=== PATIENT | male | born 1980 | race African-American/Black ===

== ENCOUNTER 2020-03-18 09:44 | Observation (INO) ==
[2020-03-18] MEDS ORDERED: ACETAMINOPHEN 500 MG TABLET PO STA (11:55)
[2020-03-18 12:02] LABS: Basophils % 0.3 % (0.0-0.8); Hematocrit 51.1 VOL% (42.0-52.0); Hemoglobin 17.5 GM/DL (14.0-18.0); Immature Granulocytes % 1.3 %; Immature Granulocytes Absolute 0.09 #; Lymphocytes # 0.7 10*3/uL (1.4-4.0); Lymphocytes % 10.6 % (21.2-54.2); Mean Corpuscular HGB Conc 34.2 GM/DL (32-36); Mean Corpuscular Volume 93.4 FL (87-102); Mean Platelet Volume 9.6 FL (9.6-12.0); Monocytes % 4.5 % (1.7-12.7); Neutrophils % 83.3 % (38.7-73.9); Platelet Count 228 T/CUMM (130-400); Red Blood Count 5.47 MC/CUMM (3.8-5.5); Red Cell Distribution Width 12.4 % (9.3-17.3); White Blood Count 6.7 T/CUMM (4-12)
[2020-03-18] MEDS ORDERED: SODIUM CHLORIDE 0.9% 1,000 ML IV STA (12:23)
[2020-03-18] MEDS ORDERED: ALBUTEROL/IPRATROPIUM 3 ML NEB RESP TX STA (12:23)
[2020-03-18] MEDS ORDERED: AZITHROMYCIN INJ 500 MG in SODIUM CHLORIDE 0.9% 250 ML IV STA (12:33)
[2020-03-18] MEDS ORDERED: cefTRIAXone 1,000 MG in SODIUM CHLORIDE 0.9% 100 ML IV STA (12:33)
[2020-03-18 12:34] LABS: Alanine Aminotransferase 52 U/L (16-61); Alkaline Phosphatase 63 U/L (45-117); Aspartate Amino Transferase 40 U/L (0-37); Blood Urea Nitrogen 12 MG/DL (7-18); Calcium 8.7 MG/DL (8.5-10.1); Estimated Glom Filtration Rate 113 ML/MIN; Ferritin 211.7 ng/ml (26-388); Glucose 110 MG/DL (74-106); Total Protein 8.1 G/DL (6.4-8.3)
[2020-03-18] MEDS ORDERED: ENOXAPARIN 100 MG/ML SYRINGE SUBCUT STA (14:10)
[2020-03-18] MEDS ORDERED: GLUCAGON 1 MG VIAL IM PRN (14:27)
[2020-03-18] MEDS ORDERED: DEXTROSE 50% 25 GM/50 ML VIAL IV PRN (14:27)
[2020-03-19] MEDS: ENOXAPARIN 80 MG/0.8 ML SYRINGE SUBCUT SCH ×2 (05:00→17:36)
[2020-03-19 05:35] LABS: Basophils % 0.2 % (0.0-0.8); Eosinophils % 0.5 % (0.00-10.9); Hematocrit 41.2 VOL% (42.0-52.0); Hemoglobin 13.9 GM/DL (14.0-18.0); Immature Granulocytes % 0.9 %; Immature Granulocytes Absolute 0.04 #; Lymphocytes # 2.3 10*3/uL (1.4-4.0); Lymphocytes % 52.8 % (21.2-54.2); Mean Corpuscular HGB Conc 33.7 GM/DL (32-36); Mean Corpuscular Volume 94.9 FL (87-102); Mean Platelet Volume 9.8 FL (9.6-12.0); Monocytes % 13.8 % (1.7-12.7); Neutrophils % 31.8 % (38.7-73.9); Platelet Count 196 T/CUMM (130-400); Red Blood Count 4.34 MC/CUMM (3.8-5.5); Red Cell Distribution Width 12.3 % (9.3-17.3); White Blood Count 4.3 T/CUMM (4-12)
[2020-03-19 05:58] LABS: Albumin 2.9 G/DL (3.4-5.0); Band Neutrophils 4 % (0-10); Bilirubin,Total 0.5 MG/DL (0.2-1.0); Calcium 7.7 MG/DL (8.5-10.1); Eosinophils 2 % (0-10); Lymphocytes 45 % (20-55); Segmented Neutrophils 37 % (50-85); Total Cells Counted 100
[2020-03-19 05:59] LABS: Hypochromasia 1+; Microcytosis Slight; Platelet Estimate Adequate
[2020-03-19] MEDS: cefTRIAXone 1,000 MG in SYRINGE 1 EACH IV SCH (10:48)
[2020-03-19] MEDS ORDERED: AZITHROMYCIN INJ 250 MG in SODIUM CHLORIDE 0.9% 250 ML IV SCH (12:00)
[2020-03-20] MEDS: ENOXAPARIN 80 MG/0.8 ML SYRINGE SUBCUT SCH (05:20)
[2020-03-20 06:30] LABS: Basophils % 0.4 % (0.0-0.8); Eosinophils # 0.1 10*3/uL (0.0-0.87); Eosinophils % 1.5 % (0.00-10.9); Hematocrit 42.3 VOL% (42.0-52.0); Hemoglobin 14.6 GM/DL (14.0-18.0); Immature Granulocytes % 0.4 %; Immature Granulocytes Absolute 0.02 #; Lymphocytes # 2.5 10*3/uL (1.4-4.0); Lymphocytes % 52.6 % (21.2-54.2); Mean Corpuscular HGB Conc 34.5 GM/DL (32-36); Mean Platelet Volume 10.6 FL (9.6-12.0); Monocytes % 12.1 % (1.7-12.7); Platelet Count 209 T/CUMM (130-400); White Blood Count 4.8 T/CUMM (4-12)
[2020-03-20 06:48] LABS: Calcium 8.4 MG/DL (8.5-10.1); Osmolality,Calculated 274.5 MOS/KG (273-304)
[2020-03-20 07:00] LABS: Band Neutrophils 2 % (0-10); Eosinophils 2 % (0-10); Hypochromasia 1+; Lymphocytes 44 % (20-55); Platelet Estimate Adequate; Segmented Neutrophils 40 % (50-85); Total Cells Counted 100
[2020-03-20 07:01] LABS: Microcytosis Slight
[2020-03-20] MEDS: cefTRIAXone 1,000 MG in SYRINGE 1 EACH IV SCH (09:51)
[2020-03-20 11:02] VITALS: BP 140/84
== END 2020-03-20 15:27 | disposition home or self-care (01) ==
LOC: N.ED 09:44 → N.EDINP 09:44 → N.2E 17:07
PROVIDERS: ADMIT Internal Medicine; ATTEND Internal Medicine